=== PATIENT | male | born 1945 | race Caucasian/White ===

== ENCOUNTER 2018-09-21 11:55 | Day surgery (SDC) | payer OTHER, MEDICARE ==
[2018-09-21] MEDS ORDERED: NALOXONE HCL 0.4 MG/ML INJ IVP PRN (11:57)
[2018-09-21] MEDS ORDERED: fentaNYL 100 MCG/2 ML INJ IVP PRN (11:57)
[2018-09-21] MEDS ORDERED: MIDAZOLAM 2 MG/2 ML VIAL IVP PRN (11:57)
[2018-09-21] MEDS ORDERED: FLUMAZENIL 0.5 MG/5 ML MDV IVP PRN (11:57)
[2018-09-21] MEDS ORDERED: NS 1,000 ML IV SCH (12:00)
[2018-09-21] MEDS ORDERED: MIDAZOLAM 2 MG/2 ML VIAL ONE (12:59)
[2018-09-21] MEDS ORDERED: FLUMAZENIL 0.5 MG/5 ML MDV IVP ONE (12:59)
[2018-09-21] MEDS ORDERED: NALOXONE HCL 0.4 MG/ML INJ ONE (12:59)
[2018-09-21] MEDS ORDERED: fentaNYL 100 MCG/2 ML INJ ONE (13:00)
[2018-09-21] MEDS ORDERED: TRIAMCINOLONE ACETONIDE 200 MG/5 ML MDV IM ONE (13:05)
[2018-09-21] MEDS ORDERED: IOPAMIDOL (ISOVUE-M 300) 15 ML VIAL ONE (13:05)
--- NOTE | 2018-09-21 13:12 | PDRADPRE ---
Radiology History & Physical Indication for procedure: back pain (Bilateral L4-5 radiculopathy : PLan for GIBSON injection) Home medications: Aleve 220 MG (*) 440 mg PO BID PRN 09/19/18 [Last Taken 09/21/18 04:30] Multivitamin 1 tab PO DAILY 09/19/18 [Last Taken 09/20/18] predniSONE 20 mg PO DAILY 09/19/18 [Last Taken 09/20/18 18:00] Allergies/Adverse Reactions: No Known Allergies Allergy (Unverified 09/19/18 18:18) Mental status: A&Ox3 Heart exam: regular rate and rhythm Lungs exam: clear to auscultation Mallampati Score: Class 2
--- NOTE | 2018-09-21 13:12 | PDPROPOC ---
Sedation Plan of Care Sedation Plan of Care: vital signs stable, mental status noted, patient educated of risks, benefits, alternatives, patient can tolerate sedation ASA Classification: ASA 2 Planned drugs: fentanyl, midazolam Mallampati Score: Class 2 Mallampati Reference Image: Patient passed 3-3-2 rule?: Yes
[2018-09-21] MEDS ORDERED: ACETAMINOPHEN 325 MG TAB PO PRN (13:47)
[2018-09-21] MEDS ORDERED: ONDANSETRON 4 MG/2 ML VIAL IVP PRN (13:47)
--- NOTE | 2018-09-21 13:47 | PDRADPN ---
Radiology Procedure Note Date of Procedure: 09/21/18 Radiologist: Mario Griffin Anesthesia: IV Sedation Pre-op Diagnosis: LBP Post-op Diagnosis: LBP Indication: Radiculopathy Procedure: Lumbar GIBSON Finding(s): L4 Lumbar GIBSON Inf/Abcess present in the surg proc area at time of surgery?: No
[2018-09-21 14:41] VITALS: BP 102/60
== END 2018-09-21 14:30 | disposition home or self-care (01) ==
LOC: FIMAGING 11:55
PROVIDERS: ATTEND Physician Assistant
DX: M54.16 Radiculopathy, lumbar region (principal)
CPT/HCPCS: J2250; J2310; J3010; J3301; Q9967